=== PATIENT | male | born 1955 ===

== ENCOUNTER 2018-10-11 05:09 | Day surgery (SDC) | payer OTHER ==
[~2018-10-11 05:09] MED LIST: CLOPIDOGREL BIS75 MG PO; ENALAPRIL PO; FORTAMET1000 MG PO; GABAPENTIN800 MG PO; HUMALOG100 UNIT/1; LIRICA PO; SENTRALINE PO; TAMS0.4C PO; ULTRAM50 MG PO; ZOCOR20 MG PO; [UNRECOGNIZED DRUG - OTHER] PO
== END 2018-10-11 16:40 | disposition home or self-care (01) ==
LOC: CIR.AMB 05:09
DX: M72.0 Palmar fascial fibromatosis [Dupuytren] (principal); M65.842 Other synovitis and tenosynovitis, left hand